=== PATIENT | male | born 1975 | race Asian ===

== ENCOUNTER 2020-06-19 18:05 | Emergency (ER) | payer OTHER ==
[~2020-06-19] VITALS: Ht 182.9 cm; Wt 99.8 kg
[2020-06-19 19:21] LABS: PLATELET COUNT 279 K/uL (142-355)
[2020-06-19 20:45] VITALS: BP 132/83; TEMP 98.9
== END 2020-06-19 20:45 | disposition home or self-care (01) ==
LOC: ED 18:05
PROVIDERS: Family Medicine
DX: M94.0 Chondrocostal junction syndrome [Tietze] (principal)
CPT/HCPCS: 36415; 82550; 82553; 84484; 85027; 93005; 96372; 99283; J1885